=== PATIENT | male | born 1995 | race Hispanic/Latino ===

== ENCOUNTER 2016-10-07 07:15 | Emergency (ER) | payer BC, OTHER ==
[2016-10-07 07:21] VITALS: BP 123/69; PULSE 54; TEMP 97; BMI 25.4
--- NOTE | 2016-10-07 07:46 | ED PDOC ---
Upper Extremity Pain/Injury Time Seen by Provider: 10/07/16 07:28 Chief Complaint (Nursing): Upper Extremity Problem/Injury Chief Complaint (Provider): Upper Extremity Problem/Injury History Per: Patient History/Exam Limitations: no limitations Onset/Duration Of Symptoms: Days Current Symptoms Are (Timing): Still Present Severity: Mild Additional Complaint(s): Patient is a 21 year old male who presents to ED for evaluation of right arm muscle spasms that began yesterday. Patient denies any pain or swelling in the arm, states that his arm felt tired after the spasms. Patient reports lifting weights the day prior to the start of the spasm. Denies any direct injury. Past Medical History Reviewed: Historical Data, Nursing Documentation, Vital Signs Vital Signs: Last Vital Signs Temp 97 F L 10/07/16 07:20 Pulse 54 L 10/07/16 07:20 Resp BP 123/69 10/07/16 07:20 Pulse Ox 98 10/07/16 07:33 - Medical History PMH: No Chronic Diseases - Surgical History Surgical History: No Surg Hx - Family History Family History: States: No Known Family Hx, Unknown Family Hx - Home Medications Home Medications: Ambulatory Orders Medication Instructions Recorded Ibuprofen [Motrin] 600 mg PO Q6 #20 tab 02/16/16 - Allergies Allergies/Adverse Reactions: Allergies Allergy/AdvReac Type Severity Reaction Status Date / Time No Known Allergies Allergy Verified 10/07/16 07:33 Review of Systems Constitutional: Negative for: Fever, Chills Respiratory: Negative for: Shortness of Breath Musculoskeletal: Positive for: Other (Arm spasm ). Negative for: Neck Pain, Shoulder Pain, Arm Pain Neurological: Negative for: Weakness, Numbness Physical Exam - Reviewed Nursing Documentation Reviewed: Yes Vital Signs Reviewed: Yes - Physical Exam Appears: Positive for: Non-toxic, No Acute Distress Skin: Positive for: Normal Color, Warm Neck: Positive for: Normal, Painless ROM Pulses-Radial (R): 2+ Extremity: Positive for: Normal ROM, Other (Right upper arm: (-) tenderness (-) swelling. Normal ROM with 5/5 strength ) Neurologic/Psych: Positive for: Alert, Oriented - ECG O2 Sat by Pulse Oximetry: 98 (RA) Pulse Ox Interpretation: Normal Medical Decision Making Medical Decision Making: Time: 07 Initial impression: Muscle spasm Initial plan: Discussed with patient that this is likely muscle spasm. Due to a lack pain and swelling, patient does not need imaging at this time. Discussed Advil and increased fluids with rest. All questions answered and patient feels comfortable with discharge Scribe Attestation: Documented by Erika Chavez acting as a scribe for Samantha Godwin MD MD Scribe Attestation: All medical record entries made by the Scribe were at my direction and personally dictated by me. I have reviewed the chart and agree that the record accurately reflects my personal performance of the history, physical exam, medical decision making, and the department course for this patient. I have also personally directed, reviewed, and agree with the discharge instructions and disposition. Disposition - Clinical Impression Clinical Impression: Muscle spasm - Patient ED Disposition Is Patient to be Admitted: No Doctor Will See Patient In The: Office Counseled Patient/Family Regarding: Studies Performed, Diagnosis, Need For Followup - Disposition [facility]errals: [facility]] Disposition: Routine/Home Disposition Time: 07:52 Condition: GOOD Additional Instructions: Rest between work outs. Hydrate well. Eat well. Return for worsening. Instructions: Muscle Spasm (ED)
[2016-10-07 08:56] VITALS: O2SAT 98
== END 2016-10-07 08:00 | disposition home or self-care (01) ==
LOC: H.ER 07:15
DX: M62.838 Other muscle spasm (principal)